=== PATIENT | female | born 1965 | race Caucasian/White ===

== ENCOUNTER 2022-07-26 08:22 | Outpatient (CLI) | payer OTHER, SELFPAY ==
--- NOTE | ~2022-07-26 | MR_ITS ---
MRI of the left shoulder Technique: Axial proton-density fat-sat images, coronal proton density fat-sat and T2 fat-sat images, and sagittal T1-weighted and T2 fat-sat images were acquired. Clinical History: Pain Findings: There is mild AC joint degenerative change with minimal subacromial spur. Cortical clavicul ar, coracoacromial, and coracohumeral ligaments are intact. Supraspinatus and infraspinatus tendons are intact, without partial or full-thickness tear. There is minimal tendinosis distally of these tendons. Subscapularis tendon is intact, with mild to moderate t endinosis. Tendon of the long head of the biceps is intact. There is probable superior labral tear extending to the anterosuperior portion. Inferior glenohumeral ligament is intact, mildly thickened. No glenohumeral joint effusion or degener ative change. No fluid distention of the subacromial/subdeltoid bursa. No muscle atrophy or edema. Impression: Suspected subtle superior labral tear extending to the anterosuperior portion. Mild thickening inferior glenohumeral ligament. Correlate for adhesive capsulitis. Mild rotator cuff tendinosis. No partial or full-thickness rotator cuff tear. Reviewed, dictated and finalized at location [] [facility] Impression: Suspected subtle superior labral tear extending to the anterosuperior portion. Mild thickening inferior glenohumeral ligament. Correlate for adhesive capsulit is. Mild rotator cuff tendinosis. No partial or full-thickness rotator cuff tear.
== END 2022-07-26 08:23 | disposition home or self-care (01) ==
PROVIDERS: Visit Provider Orthopaedic Surgery
DX: M25.512 Pain in left shoulder (principal); G89.29 Other chronic pain
CPT/HCPCS: 73221